=== PATIENT | male | born 1960 | race Caucasian/White ===

== ENCOUNTER 2019-08-21 | Emergency (ER) | payer OTHER ==
[2019-08-21] MEDS ORDERED: ALPRAZOLAM1 MG PO (21:35)
[2019-08-21] MEDS ORDERED: SERTRALINE25 MG PO (21:35)
[2019-08-21] MEDS ORDERED: ACYCLOVIR400 MG PO (21:36)
[2019-08-21] MEDS ORDERED: ARTANE2 MG PO (21:38)
[2019-08-21] MEDS ORDERED: MIRAPEX0.5 MG PO (21:38)
[2019-08-21] MEDS ORDERED: ASPIRIN 81 LOW81 MG PO (21:39)
[2019-08-21] MEDS ORDERED: AMLODIPINE BESY10 MG PO (21:40)
[2019-08-21] MEDS ORDERED: BUSPIRONE5 MG PO (21:40)
[2019-08-21] MEDS ORDERED: [UNRECOGNIZED DRUG - OTHER] (21:43)
[2019-08-21] MEDS ORDERED: ALL DAY10 MG PO (21:48)
[2019-08-21] MEDS ORDERED: TESTOST ENA200 MG/ML IM (21:50)
[2019-08-21] MEDS ORDERED: SYMBICORT1 AE1 IN (21:51)
[2019-08-21] MEDS ORDERED: VENTOLIN HFA IN (21:53)
[2019-08-21] MEDS ORDERED: ATORVASTATIN CA80 MG PO (21:54)
[2019-08-21] MEDS ORDERED: VITAMIN D35000 UNIT PO (21:54)
[2019-08-21] MEDS ORDERED: BENADRYL 25MG C25 MG PO (21:55)
[2019-08-21] MEDS ORDERED: PROTONIX40 M2 PO (21:56)
[2019-08-21] MEDS ORDERED: MELATONIN10 MG PO (21:56)
[2019-08-21] MEDS ORDERED: TRIAMCINOLON0.13 EX (21:58)
[2019-08-21] MEDS ORDERED: TORADOL PO (23:46)
== END 2019-08-21 23:52 | disposition home or self-care (01) | DRG 605 ==
DX: S80.11XA Contusion of right lower leg, initial encounter (principal); X58.XXXA Exposure to other specified factors, initial encounter

== ENCOUNTER 2019-08-30 | Emergency (ER) | payer OTHER ==
[~2019-08-30] MED LIST: ACYCLOVIR400 MG PO; ALL DAY10 MG PO; ALPRAZOLAM1 MG PO; AMLODIPINE BESY10 MG PO; ARTANE2 MG PO; ASPIRIN 81 LOW81 MG PO; ATORVASTATIN CA80 MG PO; BENADRYL 25MG C25 MG PO; BUSPIRONE5 MG PO; MELATONIN10 MG PO; MIRAPEX0.5 MG PO; PROTONIX40 M2 PO; SERTRALINE25 MG PO; SYMBICORT1 AE1 IN; TESTOST ENA200 MG/ML IM; TORADOL PO; TRIAMCINOLON0.13 EX; VENTOLIN HFA IN; VITAMIN D35000 UNIT PO; [UNRECOGNIZED DRUG - OTHER]
[2019-08-30] MEDS ORDERED: BACTRIM DS1 TAB PO (20:48)
== END 2019-08-30 21:01 | disposition home or self-care (01) | DRG 603 ==
DX: L03.115 Cellulitis of right lower limb (principal); S80.811A Abrasion, right lower leg, initial encounter; I10 Essential (primary) hypertension; G20 Parkinson's disease; F17.220 Nicotine dependence, chewing tobacco, uncomplicated; W54.1XXA Struck by dog, initial encounter